=== PATIENT | male | born 1985 | race Caucasian/White ===

== ENCOUNTER 2016-11-12 06:37 | Emergency (ER) | payer MEDICARE ==
[~2016-11-12 06:37] MED LIST: lamoTRIgine TAB(*) 100 MG PO SCH
[2016-11-12] MEDS ORDERED: Topiramate TAB(*) 100 MG PO ONE (08:51)
[2016-11-12] MEDS ORDERED: lamoTRIgine TAB(*) 100 MG PO ONE ×2 (08:51→11:31)
[2016-11-12 08:52] LABS: Hematocrit 47 % (42-52); Hemoglobin 15.8 g/dl (14.0-18.0); Mean Corpuscular HGB Conc 34 g/dl (31-36); Mean Corpuscular Hemoglobin 29 pg (27-31); Mean Corpuscular Volume 87 fL (80-94); Mean Platelet Volume 9 um3 (7.4-10.4); Red Blood Count 5.39 10^6/ul (4.0-5.4); Red Cell Distribution Width 13 % (10.5-15); White Blood Count 9.8 10^3/ul (3.5-10.8)
[2016-11-12 09:07] LABS: Albumin 4.1 g/dL (3.2-5.2); BUN/Creatinine Ratio 16.3 (8-20); Calcium 8.8 mg/dL (8.6-10.3); EGFR African American 113.3 (>60); EGFR Non-African American 88.1 (>60); Globulin 2.5 g/dL (2-4); Magnesium 2.2 mg/dL (1.9-2.7); Potassium 3.9 mmol/L (3.5-5.0); Total Bilirubin 0.6 mg/dL (0.2-1.0); Total Protein 6.6 g/dL (6.4-8.9)
[2016-11-12 09:32] LABS: Urine Bacteria Absent (Absent); Urine Bilirubin Negative (Negative); Urine Glucose Negative (Negative); Urine Nitrite Negative (Negative)
[2016-11-12 13:10] VITALS: BP 160/100
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
== END 2016-11-12 13:10 | disposition home or self-care (01) ==
LOC: ED 06:37
DX: R56.9 Unspecified convulsions (principal); Z91.14 Patient's other noncompliance with medication regimen; Z59.9 Problem related to housing and economic circumstances, unspecified
CPT/HCPCS: 36415; 80053; 81003; 81015; 83605; 83735; 85025; 85610; 93005; 99282; A9270-GY

== ENCOUNTER 2017-10-15 05:31 | Emergency (ER) | payer MEDICARE, MEDICAID ==
[2017-10-15] MEDS ORDERED: NS 0.9% 1000 ML* 1,000 ML IV ONE (05:45)
[2017-10-15 06:00] LABS: ABS Basophils 0.1 10^3/ul (0-0.2); ABS Eosinophils 0.7 10^3/ul (0-0.6); ABS Lymphocytes 2.3 10^3/ul (1.0-4.8); ABS Monocytes 0.6 10^3/ul (0-0.8); ABS Neutrophils 6.3 10^3/ul (1.5-7.7); ABS Nucleated RBC 0 10^3/ul; Eosinophil % 6.6 % (0-6); Hematocrit 46 % (42-52); Hemoglobin 15.9 g/dl (14.0-18.0); Lymphocyte % 22.9 % (25-47); Mean Corpuscular HGB Conc 35 g/dl (31-36); Mean Corpuscular Hemoglobin 31 pg (27-31); Mean Corpuscular Volume 88 fL (80-94); Nucleated Red Blood Cells % 0; Platelet Count 200 10^3/ul (150-450); Red Blood Count 5.21 10^6/ul (4.0-5.4); Red Cell Distribution Width 13 % (10.5-15)
[2017-10-15 06:14] LABS: EGFR Non-African American 83.6 (>60)
[2017-10-15] MEDS ORDERED: LORazepam INJ* 2 MG/ML 1 ML VIAL IV ONE (06:35)
[2017-10-15] MEDS ORDERED: LORazepam INJ* 2 MG/ML 1 ML VIAL ONE (06:36)
[2017-10-15 06:57] LABS: Urine Appearance Clear; Urine Blood Negative (Negative); Urine Color Yellow; Urine Ketones Negative (Negative); Urine Protein 1+(30 mg/dL) (Negative); Urine Red Blood Cell Absent (Absent); Urine Specific Gravity 1.017 (1.010-1.030); Urine Urobilinogen Negative (Negative); Urine White Blood Cell Absent (Absent)
[2017-10-15] MEDS ORDERED: Topiramate TAB(*) 100 MG PO ONE (07:47)
[2017-10-15 08:24] LABS: INR 0.91 (0.77-1.02)
[2017-10-15] MEDS: LAMOTRIGINE 200 MG PO SCH ×3 (08:26→08:37)
[2017-10-15 10:16] VITALS: BP 124/74
--- NOTE | 2017-10-15 11:50 | ED ---
I, Kristyn Galan scribed for David Valenzuela MD on 10/15/17 at 0810 . Progress - Consult/PCP Time Called: 07:55 - Dr. Omer said the pt should continue on Lamictal ER 400mg BID. He also said to increase the dose of Topiramate from 100mg BID to 150mg BID. The pt is to have extra 100mg Tompiramate now. Admission will be based on how the pt is doing in the ED. Consult/PCP: Dr. Omer Course/Dx - Diagnoses Provider Diagnoses: Elevated BP without diagnosis of hypertension, Epilepsy Discharge - Sign-Out/Discharge Documenting (check all that apply): Discharge - Discharge Plan Condition: Stable Disposition: HOME Discharge Disposition Comment: The pt will be discharged home under stable conditions. Prescriptions: Topiramate [Topamax] 50 mg PO BID #60 tablet Patient Education Materials: Epilepsy (ED) Referrals: Isaura Lemon MD [Medical Doctor] - Eliezer LINDSEY,Ranjeet Oconnor [Medical Doctor] - Additional Instructions: FOLLOW UP WITH YOUR NEUROLOGIST. INCREASE THE DOSE OF TOPIRAMATE TO 150MG TWICE A DAY. RETURN TO THE EMERGENCY DEPARTMENT FOR ANY WORSENING OF YOUR CONDITION OR QUESTIONS OR CONCERNS. YOUR BLOOD PRESSURE WAS ELEVATED TODAY; FOLLOW UP WITH YOUR PRIMARY CARE DOCTOR WITHIN ONE WEEK. - Billing Disposition and Condition Condition: STABLE Disposition: HOME The documentation as recorded by the Adama rojas Natalie accurately reflects the service I personally performed and the decisions made by me, David Valenzuela MD.
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
== END 2017-10-15 10:15 | disposition home or self-care (01) ==
LOC: ED 05:31
DX: G40.909 Epilepsy, unspecified, not intractable, without status epilepticus (principal); R03.0 Elevated blood-pressure reading, without diagnosis of hypertension; F17.210 Nicotine dependence, cigarettes, uncomplicated
CPT/HCPCS: 36415; 80053; 80175; 80201; 81003; 81015; 82550; 83605; 85025; 85610; 85730; 86140; 96374; 96375; 99282; A9270-GY; J2060

== ENCOUNTER 2018-04-11 15:22 | Emergency (ER) | payer MEDICARE, MEDICAID ==
--- NOTE | 2018-04-11 17:03 | RAD ---
Indication: Left wrist injury after fall. 3 views of the left wrist demonstrates the radius and ulna to be unremarkable. There appears to be a dorsal avulsion off the proximal row in the dorsal aspect of the wrist which may represent avulsion from the triquetrum. IMPRESSION: There appears to BE an avulsion fracture in the dorsal aspect of the proximal row suggestive of a triquetral fracture.
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
[2018-04-11 17:45] VITALS: BP 150/88
== END 2018-04-11 17:44 | disposition home or self-care (01) ==
LOC: ED 15:22
DX: S62.112A Displaced fracture of triquetrum [cuneiform] bone, left wrist, initial encounter for closed fracture (principal); W19.XXXA Unspecified fall, initial encounter; Y92.9 Unspecified place or not applicable; F17.200 Nicotine dependence, unspecified, uncomplicated; Z88.0 Allergy status to penicillin; Z88.2 Allergy status to sulfonamides; Z88.8 Allergy status to other drugs, medicaments and biological substances
CPT/HCPCS: 99281

== ENCOUNTER 2018-08-27 06:33 | Emergency (ER) | payer MEDICARE, MEDICAID ==
[2018-08-27 06:43] VITALS: BP 123/85
[2018-08-27] MEDS ORDERED: NS 0.9% 1000 ML** 1,000 ML IV ONE (06:51)
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
[2018-08-27 07:21] LABS: ABS Basophils 0.1 10^3/ul (0-0.2); ABS Eosinophils 0.6 10^3/ul (0-0.6); ABS Monocytes 0.7 10^3/ul (0-0.8); ABS Neutrophils 7.9 10^3/ul (1.5-7.7); ABS Nucleated RBC 0 10^3/ul; Hematocrit 47 % (42-52); Hemoglobin 15.7 g/dl (14.0-18.0); Lymphocyte % 17.4 %; Mean Corpuscular HGB Conc 33 g/dl (31-36); Mean Corpuscular Hemoglobin 29 pg (27-31); Mean Corpuscular Volume 88 fL (80-94); Mean Platelet Volume 8.8 fL (7.4-10.4); Nucleated Red Blood Cells % 0; Platelet Count 213 10^3/ul (150-450); Red Blood Count 5.38 10^6/ul (4.00-5.40); Red Cell Distribution Width 14 % (10.5-15); White Blood Count 11.3 10^3/ul (3.5-10.8)
[2018-08-27 07:34] LABS: Albumin 4.2 g/dL (3.2-5.2); Albumin/Globulin Ratio 1.8 (1-3); BUN/Creatinine Ratio 17.2 (8-20); Calcium 9.1 mg/dL (8.6-10.3); EGFR African American 104.1 (>60); Globulin 2.3 g/dL (2-4); Magnesium 2.2 mg/dL (1.9-2.7); Potassium 3.5 mmol/L (3.5-5.0); Total Bilirubin 0.4 mg/dL (0.2-1.0); Total Protein 6.5 g/dL (6.4-8.9)
[2018-08-30 04:22] LABS: Topiramate 3.7 mcg/mL
== END 2018-08-27 08:49 | disposition home or self-care (01) ==
LOC: ED 06:33
DX: R56.9 Unspecified convulsions (principal); Z88.2 Allergy status to sulfonamides; Z88.0 Allergy status to penicillin; F17.210 Nicotine dependence, cigarettes, uncomplicated
CPT/HCPCS: 36415; 80053; 80175; 80201; 83735; 85025; 99283